=== PATIENT | female | born 1930 | race Caucasian/White ===

== ENCOUNTER 2016-08-23 18:51 | Emergency (ER) | payer MEDICARE ==
[~2016-08-23] VITALS: Ht 165.1 cm; Wt 64.8 kg
[2016-08-23] MEDS ORDERED: SODIUM CHLORIDE 0.9% 1,000ML IVBOLUS ONE (19:30)
[2016-08-23] MEDS ORDERED: DIPHENHYDRAMINE 50 MG/ML, 1ML IVPush ONE (19:30)
[2016-08-23 20:30] LABS: ASPARTATE AMINO TRANSFERASE 21 U/L (15-37); BLOOD UREA NITROGEN 12 mg/dL (7-18)
[2016-08-23 20:35] LABS: HEMOGLOBIN 12.7 g/dL (11.7-16.4)
[2016-08-23 20:36] LABS: DIFF TOTAL CELLS COUNTED 100 CELL DIFF; IS PT STATUS REG ER OR PRE ER? YES
[2016-08-23 20:38] LABS: VERIFY COUNTS? YES
[2016-08-23] MEDS ORDERED: HYDROcodone/APAP 5/325 TABLET ONE (21:51)
[2016-08-23] MEDS ORDERED: HYDROcodone/APAP 5/325 TABLET PO ONE (22:00)
[2016-08-23 22:19] VITALS: BP 169/85
== END 2016-08-23 22:21 | disposition home or self-care (01) ==
LOC: ED 22:15
DX: K29.00 Acute gastritis without bleeding (principal); I48.91 Unspecified atrial fibrillation; I10 Essential (primary) hypertension; E78.5 Hyperlipidemia, unspecified; E11.9 Type 2 diabetes mellitus without complications; C50.919 Malignant neoplasm of unspecified site of unspecified female breast; Z90.710 Acquired absence of both cervix and uterus; Z90.49 Acquired absence of other specified parts of digestive tract
CPT/HCPCS: 36415; 71250; 74176; 80053; 81003; 83690; 84484; 85025; 93005; 99285

== ENCOUNTER 2016-09-02 11:42 | Day surgery (SDC) | payer MEDICARE ==
[~2016-09-02] VITALS: Ht 165.1 cm; Wt 63.0 kg
[2016-09-02 12:25] VITALS: BP 154/82
[2016-09-02] MEDS ORDERED: LETR2.5T PO (12:31)
[2016-09-02] MEDS ORDERED: CALC1TAB PO (12:31)
[2016-09-02] MEDS ORDERED: LACT1CAP35 PO (12:31)
[2016-09-02] MEDS ORDERED: CHOL500014 PO (12:31)
[2016-09-02] MEDS ORDERED: OMEP-110 PO (12:31)
[2016-09-02] MEDS ORDERED: MULT1TAB9 PO (12:31)
[2016-09-02] MEDS ORDERED: ASPI-496 PO (12:31)
[2016-09-02] MEDS ORDERED: AMLO2.5T PO (12:31)
[2016-09-02] MEDS ORDERED: LACTATED RINGERS 1,000 ML IV SCH (12:31)
[2016-09-02] MEDS ORDERED: LIDOCAINE 1%, 2ML ONE (12:35)
[2016-09-02] MEDS ORDERED: FENTANYL PF 250 MCG/5ML ONE (12:53)
[2016-09-02] MEDS ORDERED: MIDAZOLAM 1 MG/ML, 2ML ONE (12:53)
[2016-09-02] MEDS ORDERED: LIDOCAINE 1%, 2ML SQ PRN (13:00)
[2016-09-02] MEDS ORDERED: OXYcodone 5 MG/5 ML ORAL.SOL UDC PO PRN (14:30)
[2016-09-02] MEDS ORDERED: ONDANSETRON 2MG/ML, 2ML IVPush PRN (14:30)
[2016-09-02] MEDS ORDERED: METOPROLOL 1 MG/ML, 5ML IV PRN (14:30)
[2016-09-02] MEDS ORDERED: HYDROmorphone 1 MG/ML, 1ML IV PRN (14:30)
[2016-09-02] MEDS ORDERED: FENTANYL PF 100 MCG/2ML IV PRN (14:30)
[2016-09-02] MEDS ORDERED: ALBUTEROL SULFATE 2.5 MG/3 ML NPPB PRN (14:30)
[2016-09-02] MEDS ORDERED: hydrALAzine 20 MG/ML, 1ML IV PRN (14:30)
[2016-09-02] MEDS ORDERED: ACETAMINOPHEN 325 MG TABLET PO PRN (14:30)
[2016-09-02] MEDS ORDERED: PROPOFOL 10 MG/ML, 50ML ONE (16:10)
[2016-09-02] MEDS ORDERED: METOPROLOL 1 MG/ML, 5ML ONE (16:10)
== END 2016-09-02 16:00 | disposition home or self-care (01) ==
LOC: OUT 11:42
PROVIDERS: ATTEND Internal Medicine Geriatric Medicine
DX: R93.8 Abnormal findings on diagnostic imaging of other specified body structures (principal); Z85.3 Personal history of malignant neoplasm of breast; M19.90 Unspecified osteoarthritis, unspecified site; F41.9 Anxiety disorder, unspecified; I10 Essential (primary) hypertension; E78.5 Hyperlipidemia, unspecified; I48.91 Unspecified atrial fibrillation; Z98.1 Arthrodesis status; Z90.710 Acquired absence of both cervix and uterus; Z90.12 Acquired absence of left breast and nipple; Z98.42 Cataract extraction status, left eye; Z98.41 Cataract extraction status, right eye; Z96.1 Presence of intraocular lens; Z82.3 Family history of stroke; Z82.49 Family history of ischemic heart disease and other diseases of the circulatory system; Z80.3 Family history of malignant neoplasm of breast
CPT/HCPCS: 43259; J2250; J2704; J3010; J3490; J7120

== ENCOUNTER → 2017-06-19 | Outpatient (CLI) | payer MEDICARE ==
[~2017-06-19] MED LIST: AMLO2.5T PO; ASPI-496 PO; CALC1TAB PO; CHOL500045 PO; LACT1CAP35 PO; LETR2.5T PO; MULT1TAB9 PO; OMEP-110 PO
== END | disposition home or self-care (01) ==
LOC: CFH 12:28
PROVIDERS: ATTEND Specialist
DX: R91.1 Solitary pulmonary nodule (principal); J98.59 Other diseases of mediastinum, not elsewhere classified; C50.919 Malignant neoplasm of unspecified site of unspecified female breast
CPT/HCPCS: 71250

== ENCOUNTER 2019-04-09 18:41 | Inpatient (IN) | payer MEDICARE ==
[~2019-04-09] VITALS: Ht 165.1 cm; Wt 64.0 kg
[~2019-04-09 18:41] MED LIST changes: -AMLO2.5T PO; +AMLO2.5T5 PO
[2019-04-09] MEDS ORDERED: FAMOTIDINE 20 MG/2 ML IVPush ONE (19:30)
[2019-04-09] MEDS ORDERED: ONDANSETRON 2MG/ML, 2ML IVPush ONE (19:30)
[2019-04-09] MEDS ORDERED: SODIUM CHLORIDE FLUSH 10ML SYR IVF ONE (19:30)
[2019-04-09] MEDS ORDERED: FAMOTIDINE 20 MG/2 ML ONE (19:43)
[2019-04-09] MEDS ORDERED: ONDANSETRON 2MG/ML, 2ML ONE ×2 (19:43→22:37)
--- NOTE | 2019-04-09 19:54 | NUR ---
PIV PLACED WITH DIFFICULTY. PT ALLERGY TO CONTRAST. ER MD NOTIFIED AND ORDER CHANGED TO CT W/O CONTRAST. PT MEDICATED FOR NAUSEA AND SENT TO CT AT THIS TIME.
--- NOTE | 2019-04-09 20:12 | NUR ---
PT CONTINUES TO HAVE NAUSEA
[2019-04-09] MEDS ORDERED: SODIUM CHLORIDE 0.9% 1,000ML IVBOLUS ONE (20:30)
--- NOTE | 2019-04-09 20:32 | NUR ---
PT NOW C/O SOB AND PT BREATHING HEAVILY. ER MD NOTIFIED AND HE WENT IN TO ASSESS
[2019-04-09 20:33] LABS: BASOPHILS # (AUTO) 0.01 x10^3/uL (0-0.1); BASOPHILS % (AUTO) 0 % (0-1); EOSINOPHILS # (AUTO) 0.03 x10^3/uL (0-0.4); EOSINOPHILS % (AUTO) 1 % (1-7); LYMPHOCYTES # (AUTO) 0.73 x10^3/uL (1-3.4); LYMPHOCYTES % (AUTO) 14 % (22-44); MD NO; MEAN CORPUSCULAR HEMOGLOBIN 30.3 pg (27.0-34.8); MEAN CORPUSCULAR HGB CONC 33.8 g/dL (32.4-35.8); MEAN CORPUSCULAR VOLUME 89.7 fL (80-100); MEAN PLATELET VOLUME 9.1 fL (7.4-10.4); MONOCYTES # (AUTO) 0.95 x10^3/uL (0.2-0.8); MONOCYTES % (AUTO) 19 % (2-9); NEUTROPHILS % (AUTO) 66 % (42-75); PLATELET COUNT 143 x10^3/uL (130-400); RED BLOOD COUNT 4.36 x10^6/uL (3.82-5.3); RED CELL DISTRIBUTION WIDTH 14.1 % (9.6-15.2)
[2019-04-09 20:45] LABS: ALANINE AMINOTRANSFERASE 80 U/L (12-78); ALBUMIN 4.3 g/dL (3.4-5.0); ANION GAP 8 mmol/L (5-15); CALCIUM 9.3 mg/dL (8.5-10.1); CHLORIDE 108 mmol/L (98-107); CREATININE 0.87 mg/dL (0.55-1.02)
[2019-04-09 20:47] LABS: ALKALINE PHOSPHATASE 113 U/L (45-117); BILIRUBIN,TOTAL 1.3 mg/dL (0.2-1.0); TOTAL PROTEIN 7.4 g/dL (6.4-8.2)
[2019-04-09 21:09] LABS: MICROSCOPIC AUTO
[2019-04-09 21:10] LABS: CULTURE INDICATED? NO
[2019-04-09] MEDS ORDERED: METOCLOPRAMIDE 5 MG/ML, 2ML ONE (21:47)
--- NOTE | 2019-04-09 21:56 | NUR ---
PT CALM NO LONGER SOB. PT CONTINUES TO HAVE NAUSEA. PT MEDICATED AGAIN FOR NAUSEA. FAMILY AT BEDSIDE. VSS.
[2019-04-09] MEDS ORDERED: METOCLOPRAMIDE 5 MG/ML, 2ML IVPush ONE (22:00)
[2019-04-09] MEDS ORDERED: MORPHINE SULFATE 4 MG/ML, 1ML IVPush PRN (22:30)
[2019-04-09] MEDS ORDERED: ONDANSETRON 2MG/ML, 2ML IVPush PRN (22:30)
[2019-04-09] MEDS ORDERED: SODIUM CHLORIDE FLUSH 10ML SYR IVF PRN (22:30)
[2019-04-09] MEDS ORDERED: MORPHINE SULFATE 4 MG/ML, 1ML ONE (22:37)
--- NOTE | 2019-04-09 22:47 | NUR ---
report to marisa macario
[2019-04-09] MEDS ORDERED: LISI-170 PO (22:51)
[2019-04-09 23:04] VITALS: BP 145/65
[2019-04-10] MEDS ORDERED: morphine SULFATE 10 MG/ML, 1ML IVPush PRN
[2019-04-10] MEDS ORDERED: ACETAMINOPHEN 325 MG TABLET PO PRN
[2019-04-10 00:18] VITALS: BP 171/72
[2019-04-10] MEDS: SODIUM CHLORIDE 0.9% 1,000 ML IV SCH ×2 (00:21→11:30)
[2019-04-10 01:20] LABS: RAPID INFLUENZA A Negative (Negative); RAPID INFLUENZA B Negative (Negative)
[2019-04-10 07:33] VITALS: BP 149/73
[2019-04-10] MEDS: CALCIUM/VITAMIN D3 250-125 TABLET PO SCH (09:00)
[2019-04-10] MEDS: LISINOPRIL 20 MG TABLET PO SCH (09:00)
[2019-04-10] MEDS: AMLODIPINE 2.5 MG TABLET PO SCH (09:00)
[2019-04-10] MEDS: LACTOBACILLUS CHEW TABLET PO SCH (09:00)
[2019-04-10] MEDS: LETROZOLE 2.5 MG TABLET PO SCH (09:00)
[2019-04-10] MEDS: ASPIRIN 81 MG TABLET EC PO SCH (09:00)
[2019-04-10] MEDS: MULTIVITAMINS WITH IRON TABLET PO SCH (09:00)
[2019-04-10] MEDS: CHOLECALCIFEROL 5,000u TAB PO SCH (09:00)
[2019-04-10] MEDS ORDERED: OMEPRAZOLE 20 MG CAPSULE.DR PO SCH (09:00)
[2019-04-10 11:46] LABS: ALBUMIN 3.3 g/dL (3.4-5.0); ANION GAP 7 mmol/L (5-15); CALCIUM 7.9 mg/dL (8.5-10.1); CHLORIDE 111 mmol/L (98-107)
[2019-04-10 11:50] LABS: ALANINE AMINOTRANSFERASE 245 U/L (12-78); ALKALINE PHOSPHATASE 114 U/L (45-117); BILIRUBIN,TOTAL 3.6 mg/dL (0.2-1.0); CREATININE 0.93 mg/dL (0.55-1.02); TOTAL PROTEIN 6.3 g/dL (6.4-8.2)
[2019-04-10 13:57] VITALS: BP 139/67
[2019-04-10] MEDS: ONDANSETRON ODT 4 MG PO PRN (19:17)
[2019-04-10 19:57] VITALS: BP 144/67
[2019-04-11] MEDS: SODIUM CHLORIDE 0.9% 1,000 ML IV SCH ×3 (02:04→22:34)
[2019-04-11 02:27] VITALS: BP 160/83
[2019-04-11 04:51] LABS: ALBUMIN 3.2 g/dL (3.4-5.0); ANION GAP 8 mmol/L (5-15); CALCIUM 8.1 mg/dL (8.5-10.1); CHLORIDE 111 mmol/L (98-107)
[2019-04-11 04:55] LABS: ALANINE AMINOTRANSFERASE 167 U/L (12-78); ALKALINE PHOSPHATASE 107 U/L (45-117); BILIRUBIN,TOTAL 4.4 mg/dL (0.2-1.0); CREATININE 0.73 mg/dL (0.55-1.02); TOTAL PROTEIN 5.9 g/dL (6.4-8.2)
[2019-04-11 06:54] VITALS: BP 137/76
[2019-04-11 07:07] LABS: MEAN CORPUSCULAR HEMOGLOBIN 30.5 pg (27.0-34.8); MEAN CORPUSCULAR HGB CONC 33.8 g/dL (32.4-35.8); MEAN CORPUSCULAR VOLUME 90.1 fL (80-100); MEAN PLATELET VOLUME 10.2 fL (7.4-10.4); PLATELET COUNT 84 x10^3/uL (130-400); RED BLOOD COUNT 3.62 x10^6/uL (3.82-5.3); RED CELL DISTRIBUTION WIDTH 14.2 % (9.6-15.2)
[2019-04-11 07:09] LABS: MD YES
[2019-04-11 07:11] LABS: <PLATELET ESTIMATE> DECREASED; <RBC MORPHOLOGY> NORMAL; LYMPH#(MANUAL) 0.45 x10^3/uL (1-3.4); LYMPHS% (MANUAL) 7 % (22-44); MONOS#(MANUAL) 0.96 x10^3/uL (0.3-2.7); MONOS% (MANUAL) 15 % (2-9); SEG#(MANUAL) 4.99 x10^3/uL (1.8-6.8); SEGS% (MANUAL) 78 % (42-75)
[2019-04-11 07:12] LABS: LARGE PLATELETS 1+
[2019-04-11] MEDS: MULTIVITAMINS WITH IRON TABLET PO SCH (09:00)
[2019-04-11 09:53] LABS: BILIRUBIN, DIRECT 2.9 mg/dL (0.1-0.2)
[2019-04-11 09:54] LABS: BILIRUBIN,INDIRECT 1.5 mg/dL (0.0-2.0); BILIRUBIN,TOTAL 4.4 mg/dL (0.2-1.0)
[2019-04-11] MEDS: LACTOBACILLUS CHEW TABLET PO SCH (10:37)
[2019-04-11] MEDS: ASPIRIN 81 MG TABLET EC PO SCH (10:37)
[2019-04-11] MEDS: CHOLECALCIFEROL 5,000u TAB PO SCH (10:37)
[2019-04-11] MEDS: AMLODIPINE 2.5 MG TABLET PO SCH (10:37)
[2019-04-11] MEDS: LISINOPRIL 20 MG TABLET PO SCH (10:37)
[2019-04-11] MEDS: CALCIUM/VITAMIN D3 250-125 TABLET PO SCH (10:37)
[2019-04-11] MEDS: LETROZOLE 2.5 MG TABLET PO SCH (10:38)
[2019-04-11] MEDS: SUCRALFATE 1 GM/10 ML UDC PO SCH ×3 (10:45→20:09)
[2019-04-11 12:29] VITALS: BP 129/77
[2019-04-11 12:33] LABS: HEMOGLOBIN A1C 5.7 % (4.2-6.3)
[2019-04-11] MEDS: ONDANSETRON ODT 4 MG PO PRN ×2 (15:20→20:09)
[2019-04-11 19:40] VITALS: BP 151/75
[2019-04-11] MEDS: OMEPRAZOLE 20 MG CAPSULE.DR PO SCH (20:09)
[2019-04-12 02:42] VITALS: BP 152/89
[2019-04-12 04:30] LABS: ALBUMIN 2.9 g/dL (3.4-5.0); ANION GAP 7 mmol/L (5-15); CALCIUM 8.2 mg/dL (8.5-10.1); CHLORIDE 110 mmol/L (98-107)
[2019-04-12 04:33] LABS: MEAN CORPUSCULAR HEMOGLOBIN 30.5 pg (27.0-34.8); MEAN CORPUSCULAR HGB CONC 33.9 g/dL (32.4-35.8); MEAN CORPUSCULAR VOLUME 90.1 fL (80-100); MEAN PLATELET VOLUME 9.5 fL (7.4-10.4); PLATELET COUNT 82 x10^3/uL (130-400); RED BLOOD COUNT 3.53 x10^6/uL (3.82-5.3); RED CELL DISTRIBUTION WIDTH 14.3 % (9.6-15.2)
[2019-04-12 04:35] LABS: ALANINE AMINOTRANSFERASE 183 U/L (12-78); ALKALINE PHOSPHATASE 124 U/L (45-117); BILIRUBIN,TOTAL 4.4 mg/dL (0.2-1.0); CREATININE 0.66 mg/dL (0.55-1.02); TOTAL PROTEIN 5.9 g/dL (6.4-8.2)
[2019-04-12 05:03] LABS: MD YES
[2019-04-12 05:15] LABS: LYMPH#(MANUAL) 0.83 x10^3/uL (1-3.4); LYMPHS% (MANUAL) 17 % (22-44); MONOS#(MANUAL) 0.54 x10^3/uL (0.3-2.7); MONOS% (MANUAL) 11 % (2-9); SEG#(MANUAL) 3.53 x10^3/uL (1.8-6.8); SEGS% (MANUAL) 72 % (42-75)
[2019-04-12 05:16] LABS: <PLATELET ESTIMATE> DECREASED; <PLT MORPHOLOGY> NORMAL PLT MORPH; <RBC MORPHOLOGY> NORMAL
[2019-04-12 07:46] VITALS: BP 166/75
[2019-04-12] MEDS: MULTIVITAMINS WITH IRON TABLET PO SCH (09:00)
[2019-04-12] MEDS: AMLODIPINE 2.5 MG TABLET PO SCH (09:41)
[2019-04-12] MEDS: LACTOBACILLUS CHEW TABLET PO SCH (09:42)
[2019-04-12] MEDS: SUCRALFATE 1 GM/10 ML UDC PO SCH ×4 (09:42→20:45)
[2019-04-12] MEDS: OMEPRAZOLE 20 MG CAPSULE.DR PO SCH ×2 (09:42→20:45)
[2019-04-12] MEDS: CALCIUM/VITAMIN D3 250-125 TABLET PO SCH (09:42)
[2019-04-12] MEDS: ASPIRIN 81 MG TABLET EC PO SCH (09:42)
[2019-04-12] MEDS: CHOLECALCIFEROL 5,000u TAB PO SCH (09:42)
[2019-04-12] MEDS: LISINOPRIL 20 MG TABLET PO SCH (09:42)
[2019-04-12] MEDS: LETROZOLE 2.5 MG TABLET PO SCH (09:43)
[2019-04-12] MEDS: SODIUM CHLORIDE 0.9% 1,000 ML IV SCH ×2 (09:44→20:45)
[2019-04-12] MEDS: ONDANSETRON ODT 4 MG PO PRN (09:57)
[2019-04-12 12:41] VITALS: BP 155/76
[2019-04-12 12:50] LABS: HIT RESULT POSITIVE (NEGATIVE)
[2019-04-12] MEDS ORDERED: PINK LADY ENEMA 490 ML BOTTLE PR ONE (13:30)
[2019-04-12 19:33] VITALS: BP 165/76
[2019-04-13 00:18] VITALS: BP 167/72
[2019-04-13] MEDS: SODIUM CHLORIDE 0.9% 1,000 ML IV SCH (06:40)
[2019-04-13 07:22] VITALS: BP 137/93
[2019-04-13 08:00] LABS: ALANINE AMINOTRANSFERASE 177 U/L (12-78); ALBUMIN 2.7 g/dL (3.4-5.0); ANION GAP 8 mmol/L (5-15); CALCIUM 7.7 mg/dL (8.5-10.1); CHLORIDE 110 mmol/L (98-107); CREATININE 0.56 mg/dL (0.55-1.02)
[2019-04-13 08:03] LABS: ALKALINE PHOSPHATASE 143 U/L (45-117); BILIRUBIN,TOTAL 4.3 mg/dL (0.2-1.0)
[2019-04-13] MEDS: MULTIVITAMINS WITH IRON TABLET PO SCH (09:00)
[2019-04-13] MEDS ORDERED: POTASSIUM CHLORIDE 40 MEQ in SODIUM CHLORIDE 0.9% 500 ML IV ONE (09:00)
[2019-04-13] MEDS: CALCIUM/VITAMIN D3 250-125 TABLET PO SCH (09:05)
[2019-04-13] MEDS: AMLODIPINE 2.5 MG TABLET PO SCH (09:06)
[2019-04-13] MEDS: LISINOPRIL 20 MG TABLET PO SCH (09:06)
[2019-04-13] MEDS: CHOLECALCIFEROL 5,000u TAB PO SCH (09:06)
[2019-04-13] MEDS: ASPIRIN 81 MG TABLET EC PO SCH (09:06)
[2019-04-13] MEDS: LACTOBACILLUS CHEW TABLET PO SCH (09:06)
[2019-04-13] MEDS: OMEPRAZOLE 20 MG CAPSULE.DR PO SCH ×2 (09:06→21:17)
[2019-04-13] MEDS: LETROZOLE 2.5 MG TABLET PO SCH (09:10)
[2019-04-13] MEDS: SUCRALFATE 1 GM/10 ML UDC PO SCH ×4 (09:18→21:17)
[2019-04-13] MEDS: POTASSIUM CHLORIDE 20 MEQ TAB.ER.PRT PO SCH ×2 (09:34→16:24)
[2019-04-13 10:10] LABS: MD YES; MEAN CORPUSCULAR HEMOGLOBIN 30.1 pg (27.0-34.8); MEAN CORPUSCULAR HGB CONC 33.9 g/dL (32.4-35.8); MEAN CORPUSCULAR VOLUME 88.8 fL (80-100); MEAN PLATELET VOLUME 11.5 fL (7.4-10.4); PLATELET COUNT 84 x10^3/uL (130-400); RED BLOOD COUNT 3.74 x10^6/uL (3.82-5.3); RED CELL DISTRIBUTION WIDTH 14.6 % (9.6-15.2)
[2019-04-13 10:12] LABS: BAND#(MANUAL) 0.05 x10^3/uL; BANDS%(MANUAL) 1 % (0-7); LYMPH#(MANUAL) 0.58 x10^3/uL (1-3.4); LYMPHS% (MANUAL) 12 % (22-44); MONOS#(MANUAL) 0.86 x10^3/uL (0.3-2.7); MONOS% (MANUAL) 18 % (2-9); SEG#(MANUAL) 3.31 x10^3/uL (1.8-6.8); SEGS% (MANUAL) 69 % (42-75)
[2019-04-13 10:22] LABS: <PLATELET ESTIMATE> DECREASED; LARGE PLATELETS 1+; POLYCHROMASIA 1+
[2019-04-13] MEDS ORDERED: MAGNESIUM SULFATE PMX 2GM/50ML 50 ML IV ONE (10:30)
[2019-04-13 12:27] VITALS: BP 146/82
[2019-04-13] MEDS ORDERED: PROPOFOL 10 MG/ML, 20ML ONE (13:07)
[2019-04-13] MEDS ORDERED: ONDANSETRON ODT 8 MG PO PRN (13:30)
[2019-04-13] MEDS ORDERED: ONDANSETRON 2MG/ML, 2ML IV PRN (13:30)
[2019-04-13] MEDS ORDERED: PROMETHAZINE 25 MG/ML, 1ML IV PRN (13:30)
[2019-04-13] MEDS ORDERED: OXYcodone 5 MG/5 ML ORAL.SOL UDC PO PRN (13:30)
[2019-04-13] MEDS ORDERED: ACETAMINOPHEN 325 MG TABLET PO PRN (13:30)
[2019-04-13] MEDS ORDERED: FENTANYL PF 100 MCG/2ML IV PRN (13:30)
[2019-04-13] MEDS: DOCUSATE 100 MG CAPSULE PO PRN (16:37)
[2019-04-13 18:42] VITALS: BP 167/77
[2019-04-13 21:28] VITALS: BP 162/90
[2019-04-14] MEDS ORDERED: SODIUM CHLORIDE 0.9% 1,000 ML IV SCH
[2019-04-14 00:14] VITALS: BP 172/75
[2019-04-14] MEDS: hydrALAzine 20 MG/ML, 1ML IVPush PRN ×2 (00:17→13:20)
[2019-04-14 01:24] VITALS: BP 161/71
[2019-04-14 04:48] LABS: ALBUMIN 2.6 g/dL (3.4-5.0); ANION GAP 5 mmol/L (5-15); CALCIUM 7.6 mg/dL (8.5-10.1); CHLORIDE 109 mmol/L (98-107); MEAN CORPUSCULAR HEMOGLOBIN 30.3 pg (27.0-34.8); MEAN CORPUSCULAR HGB CONC 33.7 g/dL (32.4-35.8); MEAN CORPUSCULAR VOLUME 89.9 fL (80-100); PLATELET COUNT 121 x10^3/uL (130-400); RED BLOOD COUNT 3.58 x10^6/uL (3.82-5.3); RED CELL DISTRIBUTION WIDTH 14.8 % (9.6-15.2)
[2019-04-14 04:53] LABS: ALANINE AMINOTRANSFERASE 165 U/L (12-78); ALKALINE PHOSPHATASE 136 U/L (45-117); BILIRUBIN,TOTAL 2.8 mg/dL (0.2-1.0); CREATININE 0.49 mg/dL (0.55-1.02); TOTAL PROTEIN 5.8 g/dL (6.4-8.2)
[2019-04-14 05:47] LABS: MD YES
[2019-04-14 05:50] LABS: BANDS%(MANUAL) 2 % (0-7); LYMPH#(MANUAL) 0.43 x10^3/uL (1-3.4); LYMPHS% (MANUAL) 9 % (22-44); MONOS#(MANUAL) 0.72 x10^3/uL (0.3-2.7); MONOS% (MANUAL) 15 % (2-9); SEG#(MANUAL) 3.55 x10^3/uL (1.8-6.8); SEGS% (MANUAL) 74 % (42-75)
[2019-04-14 05:51] LABS: <PLATELET ESTIMATE> DECREASED; <PLT MORPHOLOGY> NORMAL PLT MORPH; <RBC MORPHOLOGY> NORMAL
[2019-04-14] MEDS ORDERED: POTASSIUM CHLORIDE 20 MEQ TAB.ER.PRT PO ONE (07:00)
[2019-04-14] MEDS ORDERED: FUROSEMIDE 20 MG/2 ML IV ONE (07:00)
[2019-04-14] MEDS ORDERED: POTASSIUM CHLORIDE 20 MEQ PACKET PO SCH ×2 (07:00→07:30)
[2019-04-14 07:08] VITALS: BP 172/78
[2019-04-14] MEDS: SUCRALFATE 1 GM/10 ML UDC PO SCH ×4 (07:17→21:00)
[2019-04-14] MEDS: LETROZOLE 2.5 MG TABLET PO SCH (07:46)
[2019-04-14] MEDS: OMEPRAZOLE 20 MG CAPSULE.DR PO SCH ×2 (07:47→21:00)
[2019-04-14] MEDS: POTASSIUM CHLORIDE 20 MEQ TAB.ER.PRT PO SCH ×2 (07:47→23:22)
[2019-04-14] MEDS: AMLODIPINE 2.5 MG TABLET PO SCH (07:47)
[2019-04-14] MEDS: LACTOBACILLUS CHEW TABLET PO SCH (07:47)
[2019-04-14] MEDS: CHOLECALCIFEROL 5,000u TAB PO SCH (07:48)
[2019-04-14] MEDS: ASPIRIN 81 MG TABLET EC PO SCH (07:48)
[2019-04-14] MEDS: LISINOPRIL 20 MG TABLET PO SCH (07:48)
[2019-04-14] MEDS: CALCIUM/VITAMIN D3 250-125 TABLET PO SCH (07:49)
[2019-04-14] MEDS: MULTIVITAMINS WITH IRON TABLET PO SCH (07:49)
[2019-04-14] MEDS: DOCUSATE 100 MG CAPSULE PO PRN (07:54)
[2019-04-14 13:23] VITALS: BP 184/74
[2019-04-14] MEDS ORDERED: FENTANYL PF 250 MCG/5ML ONE (16:20)
[2019-04-14] MEDS ORDERED: CEFOTETAN PMX 2GM/50ML 50 ML ONE (16:21)
[2019-04-14] MEDS ORDERED: ROCURONIUM 10MG/ML,5ML ONE (16:21)
[2019-04-14] MEDS ORDERED: PROPOFOL 10 MG/ML, 20ML ONE (16:49)
[2019-04-14] MEDS ORDERED: NEOSTIGMINE 1 MG/ML, 10ML ONE (17:23)
[2019-04-14] MEDS ORDERED: ONDANSETRON 2MG/ML, 2ML ONE (17:23)
[2019-04-14] MEDS ORDERED: DEXAMETHASONE 4 MG/ML, 1ML ONE (17:23)
[2019-04-14] MEDS ORDERED: GLYCOPYRROLATE 0.2MG/1ML, 5ML ONE (17:23)
[2019-04-14] MEDS ORDERED: BUPIVACAINE/PF 0.5% ONE (17:28)
[2019-04-14] MEDS ORDERED: EPINEPHRINE 1 MG/ML, 1ML ONE (17:28)
[2019-04-14] MEDS ORDERED: PROMETHAZINE 25 MG/ML, 1ML IV PRN (17:30)
[2019-04-14] MEDS ORDERED: MEPERIDINE/PF 25MG/ML,1ML IVPush PRN (17:30)
[2019-04-14] MEDS ORDERED: MORPHINE SULFATE 4 MG/ML, 1ML IVPush PRN (17:30)
[2019-04-14] MEDS ORDERED: hydrALAzine 20 MG/ML, 1ML IV PRN (17:30)
[2019-04-14] MEDS ORDERED: HYDROmorphone 2 MG/ML, 1ML IVPush PRN (17:30)
[2019-04-14] MEDS ORDERED: HALOPERIDOL 5 MG/ML IV PRN (17:30)
[2019-04-14] MEDS ORDERED: LABETALOL 5MG/ML, 20ML IV PRN (17:30)
[2019-04-14] MEDS ORDERED: OXYcodone 5 MG/5 ML ORAL.SOL UDC PO PRN (17:30)
[2019-04-14] MEDS ORDERED: FENTANYL PF 100 MCG/2ML IV PRN (17:30)
[2019-04-14] MEDS ORDERED: HYDROmorphone 1 MG/ML, 1ML VIAL ONE (18:12)
[2019-04-14] MEDS ORDERED: FENTANYL PF 100 MCG/2ML ONE (18:12)
[2019-04-14] MEDS ORDERED: OXYcodone 5 MG/5 ML ORAL.SOL UDC ONE (18:13)
[2019-04-14] MEDS ORDERED: hydrALAzine 20 MG/ML, 1ML ONE (18:34)
[2019-04-14] MEDS ORDERED: PROMETHAZINE 25 MG/ML, 1ML ONE (18:38)
[2019-04-14 20:06] VITALS: BP 153/70
[2019-04-15] VITALS (8 sets, daily range): BP systolic 119–180; BP diastolic 64–88
[2019-04-15] MEDS: SUCRALFATE 1 GM/10 ML UDC PO SCH ×4 (05:27→20:49)
[2019-04-15 05:39] LABS: ALBUMIN 2.6 g/dL (3.4-5.0); ANION GAP 7 mmol/L (5-15); CALCIUM 8.6 mg/dL (8.5-10.1); CHLORIDE 107 mmol/L (98-107)
[2019-04-15 05:41] LABS: BASOPHILS % (AUTO) 0 % (0-1); EOSINOPHILS # (AUTO) 0.01 x10^3/uL (0-0.4); EOSINOPHILS % (AUTO) 0 % (1-7); LYMPHOCYTES # (AUTO) 0.39 x10^3/uL (1-3.4); LYMPHOCYTES % (AUTO) 7 % (22-44); MD NO; MEAN CORPUSCULAR HEMOGLOBIN 29.9 pg (27.0-34.8); MEAN CORPUSCULAR HGB CONC 33.2 g/dL (32.4-35.8); MEAN CORPUSCULAR VOLUME 90.1 fL (80-100); MEAN PLATELET VOLUME 9.3 fL (7.4-10.4); MONOCYTES # (AUTO) 0.41 x10^3/uL (0.2-0.8); MONOCYTES % (AUTO) 8 % (2-9); NEUTROPHILS # (AUTO) 4.62 x10^3/uL (1.8-6.8); NEUTROPHILS % (AUTO) 85 % (42-75); PLATELET COUNT 163 x10^3/uL (130-400); RED BLOOD COUNT 3.98 x10^6/uL (3.82-5.3); RED CELL DISTRIBUTION WIDTH 14.8 % (9.6-15.2)
[2019-04-15 05:42] LABS: ALANINE AMINOTRANSFERASE 144 U/L (12-78); ALKALINE PHOSPHATASE 146 U/L (45-117); BILIRUBIN,TOTAL 1.9 mg/dL (0.2-1.0); TOTAL PROTEIN 6.1 g/dL (6.4-8.2)
[2019-04-15] MEDS: CALCIUM/VITAMIN D3 250-125 TABLET PO SCH (07:59)
[2019-04-15] MEDS: POTASSIUM CHLORIDE 20 MEQ TAB.ER.PRT PO SCH ×2 (07:59→17:38)
[2019-04-15] MEDS: OMEPRAZOLE 20 MG CAPSULE.DR PO SCH (07:59)
[2019-04-15] MEDS: LACTOBACILLUS CHEW TABLET PO SCH (07:59)
[2019-04-15] MEDS: ASPIRIN 81 MG TABLET EC PO SCH (07:59)
[2019-04-15] MEDS: CHOLECALCIFEROL 5,000u TAB PO SCH (07:59)
[2019-04-15] MEDS: LISINOPRIL 20 MG TABLET PO SCH (07:59)
[2019-04-15] MEDS: AMLODIPINE 2.5 MG TABLET PO SCH (07:59)
[2019-04-15] MEDS: LETROZOLE 2.5 MG TABLET PO SCH (08:03)
[2019-04-15] MEDS: MULTIVITAMINS WITH IRON TABLET PO SCH (08:05)
[2019-04-15] MEDS ORDERED: METOPROLOL 1 MG/ML, 5ML IVPush ONE (09:00)
[2019-04-15] MEDS: POLYETHYLENE GLYCOL 17 GM PACKET PO SCH (09:26)
[2019-04-15] MEDS ORDERED: DOCUSATE 100 MG CAPSULE PO SCH (09:30)
[2019-04-15] MEDS ORDERED: HYDROcodone/APAP 5/325 TABLET PO PRN (09:30)
[2019-04-15] MEDS ORDERED: BISACODYL 10 MG SUPP PR PRN (09:30)
[2019-04-15] MEDS ORDERED: ACETAMINOPHEN 650 MG/20.3 ML UDC ONE (11:41)
[2019-04-15] MEDS: METOPROLOL TARTRATE 25 MG TABLET PO SCH ×2 (11:47→17:38)
[2019-04-15] MEDS: ACETAMINOPHEN 650 MG/20.3 ML UDC PO PRN (11:48)
[2019-04-15] MEDS ORDERED: SODIUM CHLORIDE 0.9% 500 ML IV SCH (18:30)
[2019-04-15] MEDS ORDERED: SODIUM CHLORIDE 0.9% 500 ML IV ONE (19:00)
[2019-04-15] MEDS ORDERED: DOCUSATE 50 MG/5 ML, 10ML UDC ONE (21:43)
[2019-04-15] MEDS: FAMOTIDINE 20 MG TABLET PO SCH (21:48)
[2019-04-15] MEDS ORDERED: DOCUSATE 50 MG/5 ML, 10ML UDC PO ONE (22:00)
[2019-04-16 03:47] VITALS: BP 131/79
[2019-04-16 05:28] LABS: ALBUMIN 2.5 g/dL (3.4-5.0); ANION GAP 4 mmol/L (5-15); CALCIUM 8.7 mg/dL (8.5-10.1); CHLORIDE 106 mmol/L (98-107)
[2019-04-16 05:31] LABS: ALANINE AMINOTRANSFERASE 109 U/L (12-78); ALKALINE PHOSPHATASE 125 U/L (45-117); BILIRUBIN,TOTAL 1.4 mg/dL (0.2-1.0); CREATININE 0.66 mg/dL (0.55-1.02); TOTAL PROTEIN 5.7 g/dL (6.4-8.2)
[2019-04-16] MEDS: METOPROLOL TARTRATE 25 MG TABLET PO SCH ×2 (05:32→18:10)
[2019-04-16 07:15] VITALS: BP 177/78
[2019-04-16] MEDS: POLYETHYLENE GLYCOL 17 GM PACKET PO SCH (08:50)
[2019-04-16] MEDS: SUCRALFATE 1 GM/10 ML UDC PO SCH (08:50)
[2019-04-16] MEDS: DOCUSATE 50 MG/5 ML, 10ML UDC PO SCH ×3 (08:50→20:07)
[2019-04-16] MEDS: LETROZOLE 2.5 MG TABLET PO SCH (08:50)
[2019-04-16] MEDS: LISINOPRIL 20 MG TABLET PO SCH (08:50)
[2019-04-16] MEDS: AMLODIPINE 2.5 MG TABLET PO SCH (08:50)
[2019-04-16] MEDS: LACTOBACILLUS CHEW TABLET PO SCH ×2 (08:51→09:00)
[2019-04-16] MEDS: CALCIUM/VITAMIN D3 250-125 TABLET PO SCH ×2 (08:51→09:00)
[2019-04-16] MEDS: POTASSIUM CHLORIDE 20 MEQ TAB.ER.PRT PO SCH ×2 (08:51→17:00)
[2019-04-16] MEDS: ASPIRIN 81 MG TABLET EC PO SCH (08:51)
[2019-04-16] MEDS: MULTIVITAMINS WITH IRON TABLET PO SCH (09:00)
[2019-04-16] MEDS: CHOLECALCIFEROL 5,000u TAB PO SCH (09:00)
[2019-04-16 14:00] VITALS: BP 154/75
[2019-04-16 18:08] VITALS: BP 151/79
[2019-04-16 19:51] VITALS: BP 161/71
[2019-04-16] MEDS: FAMOTIDINE 20 MG TABLET PO SCH (20:08)
[2019-04-16] MEDS: hydrALAzine 20 MG/ML, 1ML IVPush PRN (20:20)
[2019-04-16 20:34] VITALS: BP 156/77
[2019-04-16] MEDS: ACETAMINOPHEN 650 MG/20.3 ML UDC PO PRN (22:11)
[2019-04-17 00:04] VITALS: BP 148/67
[2019-04-17] MEDS: METOPROLOL TARTRATE 25 MG TABLET PO SCH (06:12)
[2019-04-17 06:55] VITALS: BP 191/79
[2019-04-17] MEDS: AMLODIPINE 2.5 MG TABLET PO SCH (07:37)
[2019-04-17] MEDS: LISINOPRIL 20 MG TABLET PO SCH (07:37)
[2019-04-17] MEDS: ASPIRIN 81 MG TABLET EC PO SCH (07:37)
[2019-04-17] MEDS: LETROZOLE 2.5 MG TABLET PO SCH (07:38)
[2019-04-17] MEDS: LACTOBACILLUS CHEW TABLET PO SCH (07:41)
[2019-04-17] MEDS: DOCUSATE 50 MG/5 ML, 10ML UDC PO SCH (07:41)
[2019-04-17] MEDS: POTASSIUM CHLORIDE 20 MEQ TAB.ER.PRT PO SCH (07:41)
[2019-04-17] MEDS: CALCIUM/VITAMIN D3 250-125 TABLET PO SCH (07:42)
[2019-04-17] MEDS: MULTIVITAMINS WITH IRON TABLET PO SCH (07:42)
[2019-04-17] MEDS: POLYETHYLENE GLYCOL 17 GM PACKET PO SCH (07:42)
[2019-04-17] MEDS: CHOLECALCIFEROL 5,000u TAB PO SCH (07:42)
[2019-04-17] MEDS ORDERED: METO25TA35 PO (10:29)
[2019-04-17 13:38] VITALS: BP 156/69
== END 2019-04-17 14:31 | disposition home health service (06) | DRG 417 ==
LOC: ED 21:28 → EDIP 22:25 → 4NW 22:55 → 5SO 04-15 09:45
PROVIDERS: ADMIT Family Medicine; ATTEND Family Medicine
PROC: 0DB68ZX Excision of Stomach, Via Natural or Artificial Opening Endoscopic, Diagnostic (ICD-10-PCS; principal; 2019-04-13 12:30)
PROC: 0FT44ZZ Resection of Gallbladder, Percutaneous Endoscopic Approach (ICD-10-PCS; 2019-04-14)
DX: K80.10 Calculus of gallbladder with chronic cholecystitis without obstruction (principal); E43 Unspecified severe protein-calorie malnutrition; K27.9 Peptic ulcer, site unspecified, unspecified as acute or chronic, without hemorrhage or perforation; K31.7 Polyp of stomach and duodenum; I48.91 Unspecified atrial fibrillation; I71.9 Aortic aneurysm of unspecified site, without rupture; Z88.3 Allergy status to other anti-infective agents; Z88.8 Allergy status to other drugs, medicaments and biological substances; E80.6 Other disorders of bilirubin metabolism; D64.9 Anemia, unspecified; D69.6 Thrombocytopenia, unspecified; E11.65 Type 2 diabetes mellitus with hyperglycemia; E78.5 Hyperlipidemia, unspecified; E83.42 Hypomagnesemia; E87.6 Hypokalemia; G89.29 Other chronic pain; I10 Essential (primary) hypertension; I25.2 Old myocardial infarction; I71.4 Abdominal aortic aneurysm, without rupture; K59.00 Constipation, unspecified; K76.0 Fatty (change of) liver, not elsewhere classified; Z80.3 Family history of malignant neoplasm of breast; Z85.118 Personal history of other malignant neoplasm of bronchus and lung; Z87.11 Personal history of peptic ulcer disease; Z90.12 Acquired absence of left breast and nipple; Z90.710 Acquired absence of both cervix and uterus; C50.919 Malignant neoplasm of unspecified site of unspecified female breast; K66.8 Other specified disorders of peritoneum
CPT/HCPCS: 36415; 71045; 74176; 74181; 76700; 80053; 80074; 80307; 81001; 82247; 82248; 82533; 83036; 83690; 83735; 84100; 84132; 85025; 86022; 87400; 88304; 88305; 93005; 93306; 96374; 96375; 96376; C1729; G0378; J0171; J1100; J2405; J2550; J2704; J2710; J3010; J3480; Q0162; C1760; J0360; J1940; J2270; J2765; J3475; J3490; J7030; J7040

== ENCOUNTER 2019-11-22 11:54 | Outpatient (CLI) | payer MEDICARE ==
[~2019-11-22 11:54] MED LIST changes: -LETR2.5T PO; +LETR2.5T3 PO; +LISI-170 PO; +METO25TA35 PO
== END 2019-11-22 23:59 | disposition home or self-care (01) ==
LOC: CFH 11:54
PROVIDERS: ATTEND Internal Medicine Hematology & Oncology
DX: C50.912 Malignant neoplasm of unspecified site of left female breast (principal); T17.890A Other foreign object in other parts of respiratory tract causing asphyxiation, initial encounter; J98.4 Other disorders of lung; J92.9 Pleural plaque without asbestos; R91.1 Solitary pulmonary nodule; D35.01 Benign neoplasm of right adrenal gland; I70.0 Atherosclerosis of aorta; I77.811 Abdominal aortic ectasia; Y93.89 Activity, other specified; X58.XXXA Exposure to other specified factors, initial encounter; Y92.89 Other specified places as the place of occurrence of the external cause; Y99.8 Other external cause status
CPT/HCPCS: 71250; 74176

== ENCOUNTER → 2020-02-08 | Outpatient (CLI) | payer MEDICARE | END | disposition home or self-care (01) | LOC: CFH 12:18 | PROVIDERS: ATTEND Internal Medicine Hematology & Oncology | DX: C50.912 Malignant neoplasm of unspecified site of left female breast (principal); R91.8 Other nonspecific abnormal finding of lung field; J92.9 Pleural plaque without asbestos; J98.4 Other disorders of lung | CPT/HCPCS: 71250 ==